=== PATIENT | female | born 1950 | race Caucasian/White ===

== ENCOUNTER 2019-03-25 07:27 | Day surgery (SDC) | payer MEDICARE ==
--- NOTE | 2019-03-23 14:11 | HP ---
DATE OF SURGERY: 03/25/2019 ANTICIPATED PROCEDURE: Colonoscopy. HISTORY OF PRESENT ILLNESS: Her dad had colon cancer. She is now 68. She had a polyp in the past. She has no symptoms currently. She presents for colonoscopy. PAST MEDICAL HISTORY: ALLERGIES: PENICILLIN. MEDICATIONS: Nexium, Paxil, Advair, PAST SURGICAL HISTORY: Hysterectomy. Cholecystectomy. section. SOCIAL HISTORY: Negative. FAMILY HISTORY: Negative. PHYSICAL EXAMINATION: VITAL SIGNS: Normal. CHEST: Clear. COR: Regular. IMPRESSION: The patient's dad had colon cancer and from it. The patient had a previous colon polyp. PLAN: Colonoscopy.
[~2019-03-25 07:27] MED LIST: Lactated Ringers 1,000 ML IV ONE; Lactated Ringers 1,000 ML IV SCH
[2019-03-25] MEDS ORDERED: DIPRIVAN 200 MG/20 ML IV ONE ×2 (09:35→09:53)
[2019-03-25] MEDS ORDERED: Ketamine HCl 50 MG/ML ONE (09:35)
[2019-03-25] MEDS ORDERED: SUBLIMAZE 100 MCG/2 ML ONE (09:49)
[2019-03-25] MEDS ORDERED: ROBINUL ONE (09:51)
[2019-03-25 10:49] VITALS: BP 123/57; PULSE 66
[2019-03-25 10:50] VITALS: O2SAT 97
--- NOTE | 2019-03-25 11:18 | OP ---
SURGERY DATE/TIME: 03/25/2019 0943 PREOPERATIVE DIAGNOSIS: Family history of polyps, personal history of polyps, follow up of polyps. POSTOPERATIVE DIAGNOSIS: Family history of polyps, personal history of polyps, follow up of polyps. PROCEDURE: Colonoscopy complete to cecum. SURGEON: Gino Jaimes M.D. ANESTHESIA: MAC. COMPLICATIONS: None. CONDITION: Stable. FINDINGS: Moderate internal hemorrhoids. No mucosal lesion. Follow up five years. INDICATION: The patient has family history, personal history of polyps presents greater than five years from endoscopic examination. DESCRIPTION OF PROCEDURE: Taken to endoscopy. Left lateral decubitus position. MAC sedation provided. Excellent anesthesia level was present. Anal digital examination satisfactory. Scope introduced. Scope advanced to the base of cecum. Base of cecum, ileocecal valve, behind the ileocecal valve was all normal. Ascending, hepatic, transverse, splenic, descending. There was slight spasm in the sigmoid. Rectum satisfactory. Anus moderate internal hemorrhoids. The patient tolerated the procedure satisfactorily. Anticipated follow up five years.
== END 2019-03-25 10:50 | disposition home or self-care (01) ==
LOC: SDC 07:27
PROVIDERS: ATTEND Surgery
DX: Z09 Encounter for follow-up examination after completed treatment for conditions other than malignant neoplasm (principal); Z86.010 Personal history of colon polyps; Z80.0 Family history of malignant neoplasm of digestive organs; K64.8 Other hemorrhoids
CPT/HCPCS: J2704; J3010

== ENCOUNTER 2019-08-21 11:58 | Emergency (ER) | payer MEDICARE ==
[2019-08-21 12:22] VITALS: O2SAT 94
--- NOTE | 2019-08-21 12:41 | ERPHSYRPT ---
- History of Present Illness Time Seen by Provider: 08/21/19 12:15 Source: patient, family Exam Limitations: no limitations Patient Subjective Stated Complaint: pt was walking down her stairs in the house on Friday and fell and injured her left ankle/foot on the the lateral side Triage Nursing Assessment: Pt brought by her to the ER, left lower leg, ankle, and foot is swollen and bruised, pt stated that accident happened on Friday but was hoping that it wasn't broken but it continues to swell, vitals wnl, pulses normal, unable to check cap refill due to [place], pt has bruising to her left forearm, pt denies any other injuries, pt denies hitting head or losing consciousness Physician History: This is a 68-year-old white female who injured her left ankle 3 days ago while walking on her stairs. Initially, she could not bear weight. Now she can bear some weight but it hurts to do so. There is significant bruising present at this time and still swelling that is present. Patient not hit her head and does not have any head or neck pain. Patient states she does bruise easily. She is not on any anticoagulation therapy. Method of Injury: fell, twisted Occurred: days ago (3) Quality: aching Severity of Pain-Max: mild Severity of Pain-Current: mild Lower Extremities Pain: ankle: left Modifying Factors: Improves With: movement Associated Symptoms: other (Hurts to bear weight but can do so.) Allergies/Adverse Reactions: Penicillins Allergy (Verified 08/21/19 12:22) Hives Home Medications: Esomeprazole Magnesium [Nexium] 1 tab PO DAILY 03/10/19 [History] Fluticasone/Salmeterol [Advair 250-50 Diskus] 1 puff IH BID 03/10/19 [History] PARoxetine HCl [Paxil] 1 tab PO DAILY 03/10/19 [History] Sucralfate 1 gm PO BID 03/25/19 [History] Hx Tetanus, Diphtheria Vaccination/Date Given: No (thinks up to date) Travel Risk - International Travel Have you traveled outside of the country in past 3 weeks: No - Coronavirus Screening Are you exhibiting any of the following symptoms?: No Close contact with a COVID-19 positive Pt in past 14-21 Days: No - Review of Systems Constitutional: No Symptoms Eyes: No Symptoms Ears, Nose, & Throat: No Symptoms Respiratory: No Symptoms Cardiac: No Symptoms Abdominal/Gastrointestinal: No Symptoms Genitourinary Symptoms: No Symptoms Musculoskeletal: Injury (Left ankle) Skin: No Symptoms Neurological: No Symptoms Psychological: No Symptoms Endocrine: No Symptoms Hematologic/Lymphatic: No Symptoms Immunological/Allergic: No Symptoms All Other Systems: Reviewed and Negative - Past Medical History Pertinent Past Medical History: Yes Neurological History: No Pertinent History ENT History: No Pertinent History Cardiac History: No Pertinent History Respiratory History: COPD Endocrine Medical History: No Pertinent History Musculoskeletal History: No Pertinent History GI Medical History: GERD History: No Pertinent History Psycho-Social History: No Pertinent History Female Reproductive Disorders: No Pertinent History - Past Surgical History Past Surgical History: Yes Neuro Surgical History: No Pertinent History Cardiac: No Pertinent History Respiratory: No Pertinent History Gastrointestinal: Cholecystectomy Genitourinary: No Pertinent History Musculoskeletal: No Pertinent History Female Surgical History: Hysterectomy, Section, Tubal Ligation, Other Other Surgical History: breast bx - benign - Social History Smoking Status: Never smoker Exposure to second hand smoke: No Drug Use: none Patient Lives Alone: No - Female History Hx Now: No - Nursing Vital Signs Nursing Vital Signs: Initial Vital Signs Temperature 98.7 F 08/21/19 12:12 Pulse Rate 68 08/21/19 12:12 Blood Pressure 127/65 08/21/19 12:12 O2 Sat by Pulse Oximetry 94 L 08/21/19 12:12 Pain Scale Pain Intensity 3 - Physical Exam General Appearance: no apparent distress, alert, anxiety Eyes, Ears, Nose, Throat Exam: normal ENT inspection, moist mucous membranes Neck Exam: normal inspection, non-tender, supple, full range of motion Cardiovascular/Respiratory Exam: chest non-tender Gastrointestinal/Abdominal Exam: non-tender Back Exam: normal inspection, normal range of motion, No CVA tenderness, No vertebral tenderness Hips Exam: bilateral: non-tender, normal inspection, normal range of motion, no evidence of injury Legs Exam: bilateral leg: non-tender, normal inspection, normal range of motion, no evidence of injury Knees Exam: bilateral knee: non-tender, normal inspection, normal range of motion, no evidence of injury Ankle Exam: right ankle: non-tender, normal inspection, normal range of motion, no evidence of injury, left ankle: pain, soft tissue tenderness, swelling Foot Exam: bilateral foot: non-tender, normal inspection, normal range of m otion, no evidence of injury Neuro/Tendon Exam: normal sensation, normal motor functions, normal tendon functions Mental Status Exam: alert, oriented x 3, cooperative Skin Exam: normal color, warm, dry SpO2 Interpretation: borderline oxygenation SpO2: 94 O2 Delivery: Room Air - Course Nursing assessment & vital signs reviewed: Yes Ordered Tests: Active Orders 24 hr Category Date Time Status Splint STAT Care 08/21/19 13:19 Ordered ANKLE (3 VIEWS) Stat Exams 08/21/19 12:25 Taken Medication Summary Generic Name Dose Route Start Last Admin Trade Name Freq PRN Reason Stop Dose Admin Oxycodone/Acetaminophen 1 tab 08/21/19 13:18 Percocet Tablet 5/325mg PO 08/21/19 13:19 STAT STA - Progress Progress: improved, pain not gone completely, re-examined Progress Note: 08/21/19 13:20 X-ray of the left ankle reveals a minimally displaced distal fibular fracture. 08/21/19 13:26 Post splint neurovascular check shows left lower extremity neurovascularly intact Counseled pt/family regarding: diagnosis, need for follow-up, rad results - Departure Departure Disposition: Home Clinical Impression: Fibula fracture Condition: Stable Critical Care Time: No Referrals: GIAN PLASCENCIA [Primary Care Provider] - [facility]Ortho M-F [phone] Additional Instructions: Nonweightbearing. Elevate the leg above the level of your heart. Add ibuprofen 600 mg orally 3 times a day with food if there are no contraindications for you. Follow-up on Friday, August 23, 2019 at the [facility] orthopedic clinic for further management. Prescriptions: Oxycodone HCl/Acetaminophen [Percocet 5-325 mg Tablet] 1 each PO Q8H PRN PRN #10 tablet MDD 3 PRN Reason: Pain
[2019-08-21] MEDS ORDERED: PERCOCET TABLET 5/325MG PO STA (13:18)
[2019-08-21 13:27] VITALS: BP 116/66; PULSE 70
[2019-08-21] MEDS ORDERED: PERCOCET TABLET 5/325MG ONE (13:29)
--- NOTE | 2019-08-21 19:50 | XRAY ---
Indication: Pain following fall. Comparison: None 3 view left ankle demonstrates minimally displaced lateral malleolus fracture with soft tissue swelling. Tiny plantar heel spur. No other bony, articular, or soft tissue abnormalities.
== END 2019-08-21 13:45 | disposition home or self-care (01) ==
LOC: ED 11:58
DX: S82.402A Unspecified fracture of shaft of left fibula, initial encounter for closed fracture (principal); W10.9XXA Fall (on) (from) unspecified stairs and steps, initial encounter
CPT/HCPCS: 29515; 73610; 99284; A9270-GY

== ENCOUNTER 2019-09-14 11:30 | Day surgery (SDC) | payer MEDICARE ==
[~2019-09-14 11:30] MED LIST changes: +ACETAZOLAMIDE 250 MG TABLET PO ONE; +Ak-Dilate OPHTHALMIC*** 1.065 ML, Cyclogyl 1% OPHTH SOL 5 ML 1.065 ML, GATIFLOXACIN 0.5... OP ONE; +NON-FORMULARY ITEM OP ONE; +TETRACAINE 0.5% STERI-UNIT SOL OP ONE; +Zofran 4 MG/2 ML VIAL IV PRN; +cefUROXime sodium 0.005 GM in Sodium Chloride Flush 30 ML*** 0.5 ML IJ SCH
[2019-09-14] MEDS ORDERED: BETADINE 5% OPHTHALMIC 30 ML OP ONE (11:31)
[2019-09-14] MEDS ORDERED: Epinephrine Preservative Free 1 MG/ML IJ ONE (11:31)
[2019-09-14] MEDS ORDERED: LIDOCAINE HCL 1% 50 MG/5 ML VL PF IJ ONE (11:31)
[2019-09-14] MEDS ORDERED: Ketamine HCl 50 MG/ML ONE (13:36)
[2019-09-14] MEDS ORDERED: DIPRIVAN 200 MG/20 ML IV ONE ×2 (13:36→13:47)
[2019-09-14] MEDS ORDERED: TYLENOL 325 MG ONE (14:17)
[2019-09-14] MEDS ORDERED: TYLENOL 325 MG PO PRN (14:25)
[2019-09-14 16:07] VITALS: BP 110/69; PULSE 68; O2SAT 94
--- NOTE | 2019-09-15 08:09 | OP ---
DATE/TIME OF OPERATION: 09/14/2019 1339 TIME DICTATED: 1435 PREOPERATIVE DIAGNOSIS: Senile cataract of left eye. POSTOPERATIVE DIAGNOSIS: Senile cataract of left eye. SURGEON: Stephanie Cadena MD ACID SPLICER: None. OPERATION: Cataract extraction of left eye with an intraocular lens implant. STANDARD __X__ COMPLEX ANESTHESIA: MAC. ___X__ Monitored anesthesia care in combination with topical and intra-cameral anesthesia (because of the established specific risk of reflux, arrhythmias, or an anxiety attack associated with ocular manipulation as well as difficulty of the frame and scrap crusher to manage such potentially catastrophic events while simultaneously attempting to complete the surgical procedure, it was deemed necessary for the patient's safety to have an anesthesiologist or a nurse ratoprinter present during the procedure whenever possible. The anesthesiologist or the nurse ratoprinter was utilized to monitor and regulate the intravenous sedation of the patient, so the patient was cooperative, relaxed, and comfortable). Topical anesthesia using Tetracaine eye drops together with intra cameral anesthesia using Lidocaine 1% MPF. The nurse was utilized to monitor the patient. ANESTHESIA PROVIDER: Dayne Valentine CRNA. COMPLICATIONS: None. BLOOD LOSS: None. INDICATIONS: The patient is undergoing cataract surgery in the hopes of eliminating the visual complaints and difficulty. PROCEDURE: After arriving at the facility's outpatient surgery area, an IV was started; the patient was given 5 mg of p.o. Versed. (If an anesthesia provider was not monitoring the patient) The patient was then given topical anesthetic Tetracaine eye drops. A cotton pellet was soaked into a solution of a combination of Zymaxid 0.5%, Varinder-Synephrine 2.5% and Ocufen (other drops might have been substituted referenced in the patient's record). The pellet was inserted by the RN into the lower conjunctival cul-de-sac with a sterile forceps and left for 20 minutes. The pellet was then removed by the RN with a sterile forceps before taking the patient to the operating room. The preoperative area nurse identified the patient and marked the correct eye to be operated on. I identified the correct eye to be operated on and marked it appropriately in the outpatient surgery area. The patient was then taken into the operating room. Tetracaine eye drops were installed again in the correct eye. The eyelids and the lashes and the lid margins were scrubbed with Betadine solution. One drop of the diluted Betadine solution was placed in the conjunctival cul-de-sac for 45 seconds and then was irrigated. A drop of Tetracaine Gel was placed in the conjunctival cul-de-sac. The patient's forehead was taped to secure it during the procedure. The patient was monitored. The patient was then draped in the usual way for this procedure. An eye speculum was used to separate the eyelids. The eye was then fixated and a temporal 2.5 mm incision was made in the clear cornea temporally at the limbus. Through the incision, 0.25 cc of 1% non-preserved lidocaine was injected into the anterior chamber for intracameral anesthesia. The anterior chamber was then filled with viscoelastic. The pupil was small. I felt that it would be safer to mechanically dilate the pupil. A Malyugin ring was used at this point which dilated the pupil. That was removed at the end of the procedure prior to aspiration of the viscoelastic from the anterior chamber and posterior to the intraocular lens implant. The cataract had a great amount of cortical changes. That rendered seeing the anterior capsule difficult for a safe performance of an anterior capsulotomy. I injected an air bubble into the anterior chamber. I then injected 1 ML of vision blue solution into the anterior chamber. The vision blue solution was irrigated from the anterior chamber after 30 seconds. The anterior capsule was stained which facilitated performing the anterior capsulotomy safely. After that was completed, a cystotome was introduced into the anterior chamber and a round anterior capsulotomy was performed. The capsule was removed by a forceps. Hydrodissection was next carried utilizing a 25-gauge cannula and balanced salt solution to delineate the cortical material from the capsule and the nucleus from the cortical material. The nucleus was rotated freely into the capsular bag with no difficulty. The phaco tip of the [employer] Phacoemulsifier was introduced into the anterior chamber and two grooves were made into the nucleus 90 degrees apart. Using two spatulas resulted into the nucleus being fractured into four quadrants. The phaco tip was then used to remove each quadrant of the nucleus. Viscoelastic was used during this process to protect the corneal endothelium. Once the entire nucleus was removed, the phaco tip then was removed and the irrigation tip was introduced into the eye and the cortex was removed. The posterior capsule was polished. It was noticed that there was a tear into the posterior capsule with few vitreous strands into the pupil plan. An anterior vitrectomy was performed. A 17.50 diopter, SN60WF, posterior chamber lens implant, was inspected and found to be grossly normal. The implant was inserted into the implant injector cartridge; Viscoelastic again was introduced into the anterior chamber, which filled the capsular bag. The implant injector's cartridge tip was placed at the limbal wound and the posterior chamber implant was released into the capsular bag and rotated appropriately. The implant was found to be into the capsular bag and it was centered. 0.2 ml of Tri-Moxi was introduced via 27 gauge cannula into the vitreous cavity through the ciliary processes. Viscoelastic was aspirated from the anterior chamber and posterior to the intraocular lens implant from the capsular bag using the irrigating tip. The anterior chamber was irrigated and filled with 5 cc antibiotic solution (500 cc of BSS plus 2 ml of Fortaz 100 mg/ml) ( if patient was not allergic to the medication). The lips of the corneal incision were hydrated using BSS solution. The anterior chamber was checked and found to be water tight. ___X__ One drop each of antibiotic, steroid and NSAID drops (refer to chart for drops used) were placed in the conjunctival cul-de-sac of the operated eye. Patient tolerated the procedure quite well and left the operating room in satisfactory condition. NOTE: 10.1 cc containing 1 mg of cefuroxime was introduced into the anterior chamber at the end of the cataract procedure. DISCHARGE SUMMARY: The patient was released in stable condition. The patient and those with the patient were given an instruction sheet as of how to care for the eye after surgery as well as counseling on any abnormal laboratory studies by the postoperative RN. The patient was also given an appointment card for follow-up in the office and is to call immediately for any difficulties including but not limited to pain in the eye, decreased vision, discharge from the eye, headache and or fever. DISCHARGE DIAGNOSIS: Pseudophakia of left eye.
== END 2019-09-14 15:15 | disposition home or self-care (01) ==
LOC: SDC 11:30
PROVIDERS: ATTEND Ophthalmology
DX: H25.812 Combined forms of age-related cataract, left eye (principal); Z79.899 Other long term (current) drug therapy
CPT/HCPCS: C1780; J0171; J2001; J2704; A9270-GY

== ENCOUNTER 2019-10-12 08:04 | Day surgery (SDC) | payer MEDICARE ==
[~2019-10-12 08:04] MED LIST changes: -ACETAZOLAMIDE 250 MG TABLET PO ONE; -Lactated Ringers 1,000 ML IV ONE; +NON-FORMULARY ITEM IJ ONE; -Zofran 4 MG/2 ML VIAL IV PRN
[2019-10-12] MEDS ORDERED: Lactated Ringers 1,000 ML IV ONE (08:29)
[2019-10-12] MEDS ORDERED: ACETAZOLAMIDE 250 MG TABLET PO ONE (09:00)
[2019-10-12] MEDS ORDERED: Zofran 4 MG/2 ML VIAL IV PRN (09:00)
[2019-10-12] MEDS ORDERED: Epinephrine Preservative Free 1 MG/ML IJ ONE (10:00)
[2019-10-12] MEDS ORDERED: BETADINE 5% OPHTHALMIC 30 ML OP ONE (10:00)
[2019-10-12] MEDS ORDERED: LIDOCAINE HCL 1% 50 MG/5 ML VL PF IJ ONE (10:00)
[2019-10-12] MEDS ORDERED: DIPRIVAN 200 MG/20 ML IV ONE (11:14)
[2019-10-12] MEDS ORDERED: Xylocaine-Mpf 2% 5 Ml Vial ONE (11:17)
[2019-10-12 12:13] VITALS: BP 160/89; PULSE 62; O2SAT 93
--- NOTE | 2019-10-13 08:55 | OP ---
DATE/TIME OF OPERATION: 10/12/2019 1115 TIME DICTATED: 1256 PREOPERATIVE DIAGNOSIS: Senile cataract of right eye. POSTOPERATIVE DIAGNOSIS: Senile cataract of right eye. SURGEON: Stephanie Cadena MD TRADEMARK AFFIXER: None. OPERATION: Cataract extraction of right eye with an intraocular lens implant. STANDARD __X___ COMPLEX ANESTHESIA: MAC. ___X__ Monitored anesthesia care in combination with topical and intra-cameral anesthesia (because of the established specific risk of reflux, arrhythmias, or an anxiety attack associated with ocular manipulation as well as difficulty of the iron launder operator to manage such potentially catastrophic events while simultaneously attempting to complete the surgical procedure, it was deemed necessary for the patient's safety to have an anesthesiologist or a nurse manager medical writing present during the procedure whenever possible. The anesthesiologist or the nurse manager medical writing was utilized to monitor and regulate the intravenous sedation of the patient, so the patient was cooperative, relaxed, and comfortable). Topical anesthesia using Tetracaine eye drops together with intra cameral anesthesia using Lidocaine 1% MPF. The nurse was utilized to monitor the patient. ANESTHESIA PROVIDER: Reynaldo Moscoso CRNA. COMPLICATIONS: None. BLOOD LOSS: None. INDICATIONS: The patient is undergoing cataract surgery in the hopes of eliminating the visual complaints and difficulty. PROCEDURE: After arriving at the facility's outpatient surgery area, an IV was started; the patient was given 5 mg of p.o. Versed. (If an anesthesia provider was not monitoring the patient) The patient was then given topical anesthetic Tetracaine eye drops. A cotton pellet was soaked into a solution of a combination of Zymaxid 0.5%, Varinder-Synephrine 2.5% and Ocufen (other drops might have been substituted referenced in the patient's record). The pellet was inserted by the RN into the lower conjunctival cul-de-sac with a sterile forceps and left for 20 minutes. The pellet was then removed by the RN with a sterile forceps before taking the patient to the operating room. The preoperative area nurse identified the patient and marked the correct eye to be operated on. I identified the correct eye to be operated on and marked it appropriately in the outpatient surgery area. The patient was then taken into the operating room. Tetracaine eye drops were installed again in the correct eye. The eyelids and the lashes and the lid margins were scrubbed with Betadine solution. One drop of the diluted Betadine solution was placed in the conjunctival cul-de-sac for 45 seconds and then was irrigated. A drop of Tetracaine Gel was placed in the conjunctival cul-de-sac. The patient's forehead was taped to secure it during the procedure. The patient was monitored. The patient was then draped in the usual way for this procedure. An eye speculum was used to separate the eyelids. The eye was then fixated and a temporal 2.5 mm incision was made in the clear cornea temporally at the limbus. Through the incision, 0.25 cc of 1% non-preserved lidocaine was injected into the anterior chamber for intracameral anesthesia. The anterior chamber was then filled with viscoelastic. The pupil was small. I felt that it would be safer to mechanically dilate the pupil. A Malyugin ring was used at this point which dilated the pupil. That was removed at the end of the procedure prior to aspiration of the viscoelastic from the anterior chamber and posterior to the intraocular lens implant. The cataract had a great amount of cortical changes. That rendered seeing the anterior capsule difficult for a safe performance of an anterior capsulotomy. I injected an air bubble into the anterior chamber. I then injected 1 ML of vision blue solution into the anterior chamber. The vision blue solution was irrigated from the anterior chamber after 30 seconds. The anterior capsule was stained which facilitated performing the anterior capsulotomy safely. After that was completed, a cystotome was introduced into the anterior chamber and a round anterior capsulotomy was performed. The capsule was removed by a forceps. Hydrodissection was next carried utilizing a 25-gauge cannula and balanced salt solution to delineate the cortical material from the capsule and the nucleus from the cortical material. The nucleus was rotated freely into the capsular bag with no difficulty. The phaco tip of the [employer] Phacoemulsifier was introduced into the anterior chamber and two grooves were made into the nucleus 90 degrees apart. Using two spatulas resulted into the nucleus being fractured into four quadrants. The phaco tip was then used to remove each quadrant of the nucleus. Viscoelastic was used during this process to protect the corneal endothelium. Once the entire nucleus was removed, the phaco tip then was removed and the irrigation tip was introduced into the eye and the cortex was removed. The posterior capsule was polished. It was noticed that there was a tear into the posterior capsule with few vitreous strands into the pupil plan. An anterior vitrectomy was performed. A 17.00 diopter, SN60WF, posterior chamber lens implant, was inspected and found to be grossly normal. The implant was inserted into the implant injector cartridge; Viscoelastic again was introduced into the anterior chamber, which filled the capsular bag. The implant injector's cartridge tip was placed at the limbal wound and the posterior chamber implant was released into the capsular bag and rotated appropriately. The implant was found to be into the capsular bag and it was centered. 0.2 ml of Tri-Moxi was introduced via 27 gauge cannula into the vitreous cavity through the ciliary processes. Viscoelastic was aspirated from the anterior chamber and posterior to the intraocular lens implant from the capsular bag using the irrigating tip. The anterior chamber was irrigated and filled with 5 cc antibiotic solution (500 cc of BSS plus 2 ml of Fortaz 100 mg/ml) ( if patient was not allergic to the medication). The lips of the corneal incision were hydrated using BSS solution. The anterior chamber was checked and found to be water tight. ___X__ One drop each of antibiotic, steroid and NSAID drops (refer to chart for drops used) were placed in the conjunctival cul-de-sac of the operated eye. Patient tolerated the procedure quite well and left the operating room in satisfactory condition. DISCHARGE SUMMARY: The patient was released in stable condition. The patient and those with the patient were given an instruction sheet as of how to care for the eye after surgery as well as counseling on any abnormal laboratory studies by the postoperative RN. The patient was also given an appointment card for follow-up in the office and is to call immediately for any difficulties including but not limited to pain in the eye, decreased vision, discharge from the eye, headache and or fever. DISCHARGE DIAGNOSIS: Pseudophakia of right eye.
== END 2019-10-12 12:20 | disposition home or self-care (01) ==
LOC: SDC 08:04
PROVIDERS: ATTEND Ophthalmology
DX: H25.811 Combined forms of age-related cataract, right eye (principal)
CPT/HCPCS: C1780; J0171; J2001; J2704; A9270-GY